=== PATIENT | female | born 1975 | race Asian ===

== ENCOUNTER 2016-07-12 19:09 | Emergency (ER) | payer OTHER ==
[2016-07-12 19:14] VITALS: BP 116/66; PULSE 77; TEMP 98.8; BMI 22.8
--- NOTE | 2016-07-12 20:31 | PDOC ---
History of Present Illness - General History Source: Patient Exam Limitations: No Limitations - History of Present Illness Initial Comments: 07/12/16 20:32 The patient is a 41 year old female, with no significant past medical history who presents to the emergency department with nonproductive cough and difficulty breathing 3 days. She reports having symptoms like this yearly, where she needs to take deep inspirations. She reports 2 hours her symptoms got worse, but seemed to have resolved since then. She denies any worsening of her symptoms at night. She denies any numbness and tingling in her hands with deep breaths. She denies recent fevers, chills, headache or dizziness. She denies recent nausea, vomit, diarrhea or constipation. She denies recent chest pain or shortness of breath. She reports never be evaluating for this problem before. PAST MEDICAL HISTORY: No significant history. PAST SURGICAL HISTORY: No significant history. FAMILY HISTORY: No pertinent history. SOCIAL HISTORY: Patient lives with family and is employed. MEDICATIONS: Reviewed. ALLERGIES: As per nursing notes. ROS General: No fevers or chills, no weakness, no weight loss HEENT: No change in vision. No sore throat. No ear pain CardioVascular: No chest pain or shortness of breath Respiratory:Yes cough and difficulty breathing Gastrointestinal: No nausea, vomiting, diarrhea or constipation. No rectal bleeding Genitourinary: No dysuria, hematuria, or frequency Musculoskeletal: No joint or muscle pain or swelling Neurologic: No headache, vertigo, dizziness or loss of consciousness Psychiatric: No depression Skin: No rashes or easy bruising Endocrine: no increased thirst or abnormal weight change Allergic: no skin or latex allergy All other systems reviewed and normal Exam: General: Well-nourished well-developed individual, no acute distress HEENT: Throat: Normal, tonsils normal, no erythema or exudate Neck: Supple, no meningeal signs, no lymphadenopathy Eyes: Pupils equal reactive and round, extraocular motion intact Chest: Nontender to palpation Cardiac: S1-S2 normal, regular rate and rhythm, no murmurs rubs or gallops Respiratory: Slight coarse breath sounds bilateral bases. No wheezes. Abdomen: Soft, nondistended, normal bowel sounds, nontender to palpation diffusely Extremities: Warm, dry, no cyanosis, clubbing, or edema Skin: No rashes Neuro: Alert and oriented x3, nonfocal exam, grossly intact, normal gait Psych: Normal mood and affect <Kole Meza - Last Filed: 07/12/16 20:31> - General History Source: Patient Exam Limitations: No Limitations - History of Present Illness Initial Comments: 07/12/16 20:41 A portion of this note was documented by scribe services under my direction. I have reviewed the details of the note, within reason, and agree with the documentation. The case summary and management plan written by me. Assessment and plan: This is a 41-year-old female who comes in complaining of infrequent episodes of shortness of breath or merely associated with cold weather. Patient experienced an episode today and came in for evaluation. The episode had mostly resolved by the time patient arrived in the emergency room. Patient has no risk factors for coronary artery disease. Patient has no risk factors for PE. Patient did have some coarse breath sounds on examination otherwise lungs were clear and her exam was normal. Patient was given an albuterol neb here in the emergency room with complete resolution of her symptoms. She was discharged home on a metered-dose inhaler with presumptive mild reactive airway disease. 07/12/16 21:07 <Mallika Patterson I - Last Filed: 07/12/16 21:11> - General Chief Complaint: Cold Symptoms Stated Complaint: COUGH Time Seen by Provider: 07/12/16 19:53 Past History <Kole Meza - Last Filed: 07/12/16 20:31> - Psycho/Social/Smoking Cessation Hx Anxiety: No Suicidal Ideation: No Smoking History: Never smoked Have you smoked in the past 12 months: No Number of Cigarettes Smoked Daily: 0 Information on smoking cessation initiated: No Hx Alcohol Use: No Drug/Substance Use Hx: No Substance Use Type: None <Mallika Patterson I - Last Filed: 07/12/16 21:11> - Past Medical History Allergies/Adverse Reactions: Allergies Allergy/AdvReac Type Severity Reaction Status Date / Time No Known Allergies Allergy Unverified 07/12/16 19:14 Home Medications: Ambulatory Orders Albuterol Sulfate Inhaler - [Ventolin HFA Inhaler -] 1 - 2 inh PO Q4H PRN #1 inhaler 07/12/16 *Physical Exam - Vital Signs Last Vital Signs Temp Pulse Resp BP Pulse Ox 98.8 F 77 14 116/66 100 07/12/16 19:11 07/12/16 19:11 07/12/16 19:11 07/12/16 19:11 07/12/16 19:11 <Kole Meza - Last Filed: 07/12/16 20:31> - Vital Signs Last Vital Signs Temp Pulse Resp BP Pulse Ox 98.8 F 77 14 116/66 100 07/12/16 19:11 07/12/16 19:11 07/12/16 19:11 07/12/16 19:11 07/12/16 19:11 <Mallika Patterson I - Last Filed: 07/12/16 21:11> *DC/Admit/Observation/Transfer - Attestations Scribe Attestion: 07/12/16 20:32 Documentation prepared by Kole Meza, acting as medical lab technician for Mallika Patterson MD. <Kole Meza - Last Filed: 07/12/16 20:31> - Discharge Dispostion Admit: No <Mallika Patterson I - Last Filed: 07/12/16 21:11> Diagnosis at time of Disposition: Reactive airway disease Qualifiers: Asthma severity: mild intermittent Asthma complication type: uncomplicated Qualified Code(s): J45.20 - Mild intermittent asthma, uncomplicated - Discharge Dispostion Disposition: HOME Condition at time of disposition: Good - Patient Instructions Additional Instructions: If you develop additional episodes of shortness of breath U can use your inhaler 2 puffs as often as every 4 hours as needed. Return to the emergency department immediately with ANY new, persistent or worsening symptoms. Continue any medications as previously prescribed by your physician. It is important that you get a primary care doctor that you can follow-up with. . Please make sure your doctor reviews the results of your emergency evaluation. Thank you for coming to the Emergency Department today for your care. It was a pleasure to see you today. Please note that your evaluation is INCOMPLETE until you follow-up with your doctor.
[2016-07-12] MEDS ORDERED: ALBUTEROL SO4 0.083% IH SOL 2.5 MG/3 ML VIAL.NEB. NEB ONE ×2 (20:32→20:34)
== END 2016-07-12 21:13 | disposition home or self-care (01) ==
LOC: FER 19:09 → JER 19:09 → FER 21:13
DX: J45.20 Mild intermittent asthma, uncomplicated (principal)
CPT/HCPCS: 99282-25

== ENCOUNTER 2018-07-17 09:01 | Emergency (ER) | payer OTHER ==
[2018-07-17 09:05] VITALS: BP 123/87; PULSE 99; TEMP 98.3; BMI 23.3
--- NOTE | 2018-07-17 09:50 | PDOC ---
History of Present Illness - General Chief Complaint: Cold Symptoms Stated Complaint: cold Time Seen by Provider: 07/17/18 09:07 - History of Present Illness Initial Comments: 07/17/18 10:37 Chief complaint: Cough History of present illness: Patient with flulike symptoms since Sunday, including nonproductive cough, nasal congestion, and body aches. Review of systems: Denies fever/chills, headache, sore throat, chest pain, shortness of breath, abdominal pain, nausea, vomiting, diarrhea. Patient is active, a runner, with no serious medical or surgical illnesses past her present Past medical history: Exercise-induced asthma, primarily in the cold weather, not significant enough to need treatment. 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 Her daughter as well has had the flu. No tobacco alcohol or nonprescription drugs. Family history: Reviewed and noncontributory for cardiac, pulmonary, GI, or metabolic diseases or cancer. Physical exam: Alert and oriented well-developed well-nourished no acute distress cheerful and cooperative. No tachypnea or dyspnea. No respiratory symptoms at rest Afebrile, vital signs normal including respiratory rate of 16 and unlabored and oxygen saturation 100% room air HEENT shows only mild nasal congestion. Ears and throat are clear Neck supple without bruit mass or nodes Chest clear with full breath sounds bilaterally, no wheezes rales or rhonchi. No dullness at the bases CV S1 and S2 normal without murmur rub or gallop pulses full and symmetric no JVD or edema no bruits Abdomen soft nontender without mass or organomegaly Neurological intact Skin clear, no rash, adequate turgor and wet mucous membranes Extremities no CCE Impression: Probable influenza, young healthy female without significant risk factors. Condition is improving. Plan: Reassure, symptomatic treatment and follow-up if condition worsens. Fully ambulatory and in no distress at discharge to follow-up as directed Past History - Past Medical History Allergies/Adverse Reactions: Allergies Allergy/AdvReac Type Severity Reaction Status Date / Time No Known Allergies Allergy Verified 07/17/18 09:02 Home Medications: Ambulatory Orders NK [No Known Home Medication] 07/17/18 COPD: No - Suicide/Smoking/Psychosocial Hx Smoking History: Never smoked Have you smoked in the past 12 months: No Number of Cigarettes Smoked Daily: 0 Hx Alcohol Use: Yes (ocasional) Drug/Substance Use Hx: No Substance Use Type: None *Physical Exam - Vital Signs Last Vital Signs Temp Pulse Resp BP Pulse Ox 98.3 F 99 H 16 123/87 100 07/17/18 09:01 07/17/18 09:01 07/17/18 09:01 07/17/18 09:01 07/17/18 09:01 Moderate Sedation - Procedure Monitoring Vital Signs: Procedure Monitoring Vital Signs Temperature 98.3 F 07/17/18 09:01 Pulse Rate 99 H 07/17/18 09:01 Respiratory Rate 16 07/17/18 09:01 Blood Pressure 123/87 07/17/18 09:01 O2 Sat by Pulse Oximetry (%) 100 07/17/18 09:01 *DC/Admit/Observation/Transfer Diagnosis at time of Disposition: Viral upper respiratory tract infection with cough - Discharge Dispostion Disposition: HOME Condition at time of disposition: Stable Decision to Admit order: No - Referrals - Patient Instructions Printed Discharge Instructions: DI for Viral Upper Respiratory Infection -- Adult Additional Instructions: Rest, avoid the cold, fluids and good nutrition, Motrin and Robitussin-DM for symptomatic relief. Return to ER if there is high fever, increasing difficulty in breathing, or chest pain. Otherwise follow-up primary physician 3-5 days. - Post Discharge Activity Forms/Work/School Notes: Back to Work
== END 2018-07-17 09:55 | disposition home or self-care (01) ==
LOC: FER 09:01
DX: J06.9 Acute upper respiratory infection, unspecified (principal); B97.89 Other viral agents as the cause of diseases classified elsewhere; R05 Cough
CPT/HCPCS: 99281-25